=== PATIENT | female | born 1970 | race Caucasian/White ===

== ENCOUNTER 2022-04-12 06:50 | Day surgery (SDC) | payer MEDICAID ==
[~2022-04-12] VITALS: Ht 154.9 cm; Wt 69.1 kg
[~2022-04-12 06:50] MED LIST: SODIUM CHLORIDE 0.9% 1,000 ML ONE
[2022-04-12] MEDS ORDERED: SODIUM CHLORIDE 0.9% 1,000 ML IV SCH (07:00)
[2022-04-12] MEDS ORDERED: SODIUM CHLORIDE 0.9% 1,000 ML ONE (07:10)
[2022-04-12 07:14] LABS: COVID AG,FIA SOURCE NASOPHARYNGEAL
[2022-04-12] MEDS ORDERED: AMLO-257 PO (07:33)
[2022-04-12] MEDS ORDERED: PROPOFOL 1% 20 ML VIAL IVP ONE (12:00)
== END 2022-04-12 10:25 | disposition home or self-care (01) ==
LOC: SURGERY 06:50
PROVIDERS: ATTEND Internal Medicine Gastroenterology
DX: D12.8 Benign neoplasm of rectum (principal); K64.0 First degree hemorrhoids; I10 Essential (primary) hypertension; Z98.890 Other specified postprocedural states; Z79.899 Other long term (current) drug therapy; Z20.822 Contact with and (suspected) exposure to COVID-19
CPT/HCPCS: 45385; 45380; 87426; C9803; C1769; J2704; J7030